=== PATIENT | female | born 1965 | race Caucasian/White ===

== ENCOUNTER → 2021-03-04 | Outpatient (CLI) | payer BC | LOC: COL.VAS 12:29 | DX: I51.7 Cardiomegaly (principal); D86.9 Sarcoidosis, unspecified ==

== ENCOUNTER 2022-01-25 12:32 | Day surgery (SDC) | payer OTHER, BC ==
[2022-01-25] VITALS (7 sets, daily range): BP systolic 126–143; BP diastolic 69–79; PULSE 63–102; TEMP 97.6–98.2
[~2022-01-25] VITALS: Ht 175.3 cm; Wt 81.5 kg
[2022-01-25] MEDS ORDERED: TRELEGY ELLIPT1 EACH IH (13:29)
[2022-01-25] MEDS ORDERED: TREXALL15 MG PO (13:30)
[2022-01-25] MEDS ORDERED: PROAIR HFA0.09 MG/AC IH (13:31)
[2022-01-25] MEDS ORDERED: NORCO 325 MG-51 TAB PO (13:31)
[2022-01-25] MEDS ORDERED: AMBIEN 10MG10 MG PO (13:31)
[2022-01-25] MEDS ORDERED: VITAMIND3 5000 PO (13:32)
[2022-01-25] MEDS ORDERED: VOLTAREN 50MG T50 MG PO (13:35)
[2022-01-25] MEDS ORDERED: TURMERIC500 MG PO (13:35)
[2022-01-25] MEDS ORDERED: OMEGA-31 SGL PO (13:36)
[2022-01-25] MEDS ORDERED: PROTONIX 40MG T40 MG PO (13:36)
[2022-01-25] MEDS ORDERED: FLEXERIL 1010 MG/TAB PO (13:36)
[2022-01-25] MEDS ORDERED: CIPRO 250MG TA250 MG PO (13:37)
[2022-01-25] MEDS ORDERED: FOLIC ACID5 MG/ML IJ (13:37)
[2022-01-25] MEDS ORDERED: PYRIDIUM 100MG100 MG PO (16:49)
--- NOTE | 2022-01-25 17:31 | NUR ---
PT ARRIVES FROM PACU @ 1710, IS A&O X3, RESPIRATIONS UNLABORED ON RA. PT IS ASSISTED WITH SBA TO BR, URINATES CLEAR REDDISH URINE. PT IS GIVEN ICE WATER TO DRINK, INSTRUCTED ON HOW TO ORDER DINNER. IVF INFUSING.
--- NOTE | 2022-01-25 19:52 | NUR ---
BEDSIDE SHIFT REPORT FROM CHEYENNE ZAIDI. PATIENT ALERT AND ORIENTED. SITTING UP IN BED EATING DINNER. TOLERATED WELL. AMBULATED INDEPENDENTLY SEVERAL TIMES TO BATHROOM AND VOIDED WITHOUT ISSUE. DENIES PAIN. DENIES NAUSEA. IV TO R HAND DC'D, CATHETER INTACT. BANDAID APPLIED. DC TEACHING COMPLETED. DC PAPERWORK SIGNED. PATIENT DC'D VIA WHEELCHAIR BY NURSING STAFF TO HOME WITH FAMILY AT 1954. DC CRITERIA MET.
== END 2022-01-25 19:55 | disposition home or self-care (01) ==
LOC: SDCO 12:32 → SURG 17:10 → SDCO 19:55
DX: N20.1 Calculus of ureter (principal); R35.0 Frequency of micturition; R31.9 Hematuria, unspecified
CPT/HCPCS: OP; C1769; C2617; J0690; J1100; J1885; J2405; J2704; J3010; J7120; Q9967

== ENCOUNTER → 2022-11-01 | Outpatient (CLI) | payer OTHER, BC ==
[~2022-11-01] MED LIST: AMBIEN 10MG10 MG PO; CIPRO 250MG TA250 MG PO; FLEXERIL 1010 MG/TAB PO; FOLIC ACID5 MG/ML IJ; NORCO 325 MG-51 TAB PO; OMEGA-31 SGL PO; PROAIR HFA0.09 MG/AC IH; PROTONIX 40MG T40 MG PO; PYRIDIUM 100MG100 MG PO; TRELEGY ELLIPT1 EACH IH; TREXALL15 MG PO; TURMERIC500 MG PO; VITAMIND3 5000 PO; VOLTAREN 50MG T50 MG PO
== END ==
LOC: COL.VAS 12:14
DX: D86.2 Sarcoidosis of lung with sarcoidosis of lymph nodes (principal)